=== PATIENT | female | born 1970 | race African-American/Black ===

== ENCOUNTER 2023-06-26 08:23 | Outpatient (OUT) | payer OTHER, SELFPAY ==
[2023-06-26 08:57] LABS: Basophils Percent Auto 0.7 % (0.2-2.0); Eosinophils Absolute Auto 0.2 10^3/uL (0.0-0.7); Eosinophils Percent Auto 4.4 % (0.9-7.0); Hematocrit 45.3 % (36.0-48.0); Hemoglobin 14.4 g/dL (12.0-16.0); Immature Granulocytes Abs Auto 0.01 10^3/uL (0.00-0.03); Immature Granulocytes Pct Auto 0.2 % (0.0-0.5); Lymphocytes Absolute Auto 2.4 10^3/uL (1.2-3.8); Lymphocytes Percent Auto 55.4 % (20.5-60.0); Mean Corpuscular HGB Conc 31.8 g/dL (29.9-35.2); Mean Corpuscular Hemoglobin 28.5 pg (26.7-34.0); Mean Corpuscular Volume 89.7 fL (81.0-99.0); Mean Platelet Volume 9.3 fL (9.5-13.5); Monocytes Absolute Auto 0.3 10^3/uL (0.3-0.8); Monocytes Percent Auto 7.2 % (1.7-12.0); Neutrophils Absolute Auto 1.4 10^3/uL (1.4-6.5); Neutrophils Percent Auto 32.1 % (43.0-75.0); Platelet Count 246 10^3/uL (150-450); Red Blood Count 5.05 10^6/uL (4.20-5.40); Red Cell Distribution Width 14.9 % (11.0-15.0); White Blood Count 4.3 10^3/uL (4.0-11.0)
[2023-06-26 09:08] LABS: Estimated Average Glucose 123 mg/dL; Glycohemoglobin A1C 5.9 % (4.5-6.2)
[2023-06-26 09:23] LABS: Alanine Aminotransferase 34 U/L (14-59); Albumin Globulin Ratio 0.8; Albumin Level 3.1 g/dL (3.4-5.0); Alkaline Phosphatase 96 U/L (46-116); Anion Gap 13.4; Aspartate Amino Transferase 21 U/L (15-37); BUN Creatinine Ratio 12.4; Bilirubin Total 0.2 mg/dL (0.2-1.0); Calcium 8.6 mg/dL (8.5-10.1); Chloride 108 mmol/L (98-107); Cholesterol 236 mg/dL (<=200); Estimated GFR (African America >60 (>=60); Estimated GFR (Non-African Ame >60 (>=60); Gamma Glutamyl Transpeptidase 31 U/L (8-55); Globulin 3.7 g/dL; Glucose 115 mg/dL (74-106); Potassium 4.4 mmol/L (3.5-5.1); Sodium 143 mmol/L (136-145); Thyroid Stimulating Hormone 0.736 uIU/mL (0.358-3.740); Total Protein 6.8 g/dL (6.4-8.2)
[2023-06-27 08:08] LABS: HBsAg Screen Negative (Negative); HCV Ab Non Reactive (Non Reactive); HIV Ab/p24 Ag Screen Non Reactive (Non Reactive); Hep A Ab, IgM Negative (Negative); Hep B Core Ab, IgM Negative (Negative); Rapid Plasma Reagin, Quant Non Reactive titer (NonRea<1:1)
== END 2023-06-26 08:24 | disposition home or self-care (01) ==
LOC: LAB 08:27
PROVIDERS: Nurse Practitioner Primary Care
DX: E78.5 Hyperlipidemia, unspecified (principal); R73.03 Prediabetes; F10.20 Alcohol dependence, uncomplicated; F13.20 Sedative, hypnotic or anxiolytic dependence, uncomplicated; F14.20 Cocaine dependence, uncomplicated
CPT/HCPCS: 36415; 80053; 80074; 82465; 82977; 83036; 84443; 85025; 86592; 87389

== ENCOUNTER 2023-06-30 12:40 | Emergency (ER) | payer OTHER, SELFPAY ==
[2023-06-30] VITALS (9 sets, daily range): BP systolic 142–150; BP diastolic 79–104; PULSE 54–64; RESP 18–47; TEMP 36.4; O2SAT 95–98; BMI 35.0
--- NOTE | 2023-06-30 12:47 | ECG_ITS ---
The [facility] Test Date: 2023-06-30 Pat Name: ELYSIA Ibrahim Department: Room: - Gender: Female [employer]: : 1970 Requested By: 1030 Order Number: [id number] Reading MD: [place] LUBIN Measurements Intervals [address] Flat Rate: 59 P: 58 [place]: 140 QRS: -19 QRSD: 96 T: 5 QT: 410 QTc: 408 Interpretive Statements 1100 Sinus rhythm 2420 RSR (QR) in lead V1/V2, consistent with right ventricular conduction delay ST/T wave changes, can't exclude inferolateral ischemia 0104 ELECTRODE(S) DETACHED ... Repeat ECG is requested 9150 abnormal ECG No previous ECG available for comparison Electronically Signed On 07-01-2023 7:13:25 EST by OH LUBIN
--- NOTE | 2023-06-30 12:48 | XR_ITS ---
The [address] [address] Patient Name: ELYSIA COX MRN: [id number] date: 1970 Sex: F Assigned Patient Location: ER Current Patient Location: ER Accession/Order Number: [id number] Exam Date: 06/30/2023 13:10 Report Date: 06/30/2023 13:58 At the request of: CHRISTINE CORTEZ Procedure: XR chest 1V EXAM: XR chest 1V at 1321 hours HISTORY: CP COMPARISON: None. TECHNIQUE: AP upright portable chest x-ray FINDINGS: The cardiac silhouette is borderline enlarged without overt cardiac decompensation. No acute infiltrate, effusion or pneumothorax is identified. The osseous structures are grossly intact. XR/XR chest 1V IMPRESSION: Borderline cardiac enlargement without overt cardiac decompensation. There is no evidence of a focal infiltrate. Direct comparison with a previous study may be helpful in determining the chronicity of these findings. Electronically authenticated by: [place] MAX Date: 06/30/2023 13:58
--- NOTE | 2023-06-30 12:48 | ED.CHESTPAI1 ---
HPI - Chest Pain General Chief Complaint: Chest Pain Stated Complaint: GENERAL WEAKNESS Time Seen by Provider: 06/30/23 12:47 History of Present Illness HPI narrative: 53-year-old female presents for chest pain. She's had some pressure on her chest for several days. About an hour ago she developed some sharp shooting pains in the sternal area which are now gone. 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 No fever cough or injury. Related Data Home Medications Medication Instructions Recorded Confirmed amlodipine 5 mg tablet 5 mg PO DAILY 06/30/23 06/30/23 levetiracetam 500 mg tablet 500 mg PO BID 06/30/23 06/30/23 (Keppra) losartan 50 mg tablet 50 mg PO DAILY 06/30/23 06/30/23 naltrexone 50 mg tablet 50 mg PO DAILY 06/30/23 06/30/23 omeprazole 20 mg capsule,delayed 20 mg PO DAILY 06/30/23 06/30/23 release oxybutynin chloride 5 mg 5 mg PO DAILY 06/30/23 06/30/23 tablet,extended release 24 hr sertraline 50 mg tablet 50 mg PO DAILY 06/30/23 06/30/23 thiamine HCl (vitamin B1) 100 mg 50 mg PO DAILY 06/30/23 06/30/23 tablet Allergies Allergy/AdvReac Type Severity Reaction Status Date / Time chlorpromazine AdvReac Intermediate Verified 06/30/23 12:47 [From Thorazine] divalproex sodium AdvReac Intermediate Verified 06/30/23 12:47 [From Depakote] morphine AdvReac Intermediate Verified 06/30/23 12:47 penicillin G AdvReac Intermediate Verified 06/30/23 12:47 Sulfa (Sulfonamide AdvReac Intermediate Verified 06/30/23 12:47 Antibiotics) Review of Systems ROS Narrative A ten point review of systems is negative except as noted above. PFSH PFSH Social History Smoking status: Former smoker Exam Narrative Exam Narrative: Nurses note and vital signs reviewed and patient is not hypoxic. General: The patient appears well and in no apparent distress. Patient is resting comfortably on cart. Skin: Warm, dry, no pallor noted. There is no rash noted. Head: Normocephalic, atraumatic Eye: Normal conjunctiva, no drainage Ears, Nose, Mouth, and Throat: oral mucosa is moist. Nares patent. Cardiovascular: Regular Rate and Rhythm Respiratory: Patient is in no distress, no accessory muscle use, lungs are clear to auscultation, no wheezing, rales or rhonchi Back: non-tender GI: soft and nontender Musculoskeletal: The patient has no evidence of calf tenderness, no pitting edema, symmetrical pulses noted bilaterally Neurological: A&O, normal speech Psychiatric: Cooperative Constitutional Vital Signs, click to edit/add: Last Vital Signs Temp 97.6 F 06/30/23 12:49 Pulse 54 L 06/30/23 13:30 Resp 22 06/30/23 13:30 BP 150/104 H 06/30/23 13:30 Pulse Ox 95 06/30/23 13:20 O2 Del Method Room Air 06/30/23 12:49 Course Vital Signs Vital signs: Vital Signs Pulse Oximetry 97 06/30/23 12:44 Temperature 97.6 F 06/30/23 12:49 Pulse Rate 54 L 06/30/23 13:30 Respiratory Rate 22 06/30/23 13:30 Blood Pressure 150/104 H 06/30/23 13:30 Pulse Oximetry 95 06/30/23 13:20 Oxygen Delivery Method Room Air 06/30/23 12:49 MDM - Chest Pain MDM Narrative Medical decision making narrative: her workup is negative including two troponins. She states that she feels much better now and no sharp pains are gone. She is going to be released. Treatment diagnosis and follow-up were discussed with the patient. Differential Diagnosis Differential diagnosis: Likely pneumothorax, unstable angina pectoris, atypical chest pain, st elevation myocardial infarction, costochondritis and chest pain Lab Data Attestation: I reviewed the patient's lab results. Labs: Lab Results 06/30/23 06/30/23 Range/Units 13:01 14:07 WBC 5.3 (4.0-11.0) 10^3/uL RBC 4.87 (4.20-5.40) 10^6/uL Hgb 13.9 (12.0-16.0) g/dL Hct 42.6 (36.0-48.0) % MCV 87.5 (81.0-99.0) fL MCH 28.5 (26.7-34.0) pg MCHC 32.6 (29.9-35.2) g/dL RDW 14.2 (11.0-15.0) % Plt Count 255 (150-450) 10^3/uL MPV 9.3 L (9.5-13.5) fL Neut % (Auto) 44.7 (43.0-75.0) % Lymph % (Auto) 42.0 (20.5-60.0) % [place] % (Auto) 8.5 (1.7-12.0) % Eos % (Auto) 4.0 (0.9-7.0) % Baso % (Auto) 0.6 (0.2-2.0) % Neut # (Auto) 2.4 (1.4-6.5) 10^3/uL Lymph # (Auto) 2.2 (1.2-3.8) 10^3/uL [place] # (Auto) 0.5 (0.3-0.8) 10^3/uL Eos # (Auto) 0.2 (0.0-0.7) 10^3/uL Baso # (Auto) 0.0 (0.0-0.1) 10^3/uL Abs Immat Gran (auto) 0.01 (0.00-0.03) 10^3/uL Imm/Tot Granulo (auto) 0.2 (0.0-0.5) % Sodium 140 (136-145) mmol/L Potassium 4.2 (3.5-5.1) mmol/L Chloride 106 (98-107) mmol/L Carbon Dioxide 25.8 (21.0-32.0) mmol/L Anion Gap 12.4 BUN 11.0 (7.0-18.0) mg/dL Creatinine 0.79 (0.55-1.02) mg/dL Est GFR ( Amer) >60 (>=60) Est GFR (Non-Af Amer) >60 (>=60) BUN/Creatinine Ratio 13.9 Glucose 110 H (74-106) mg/dL Calcium 9.0 (8.5-10.1) mg/dL Troponin I High Sens 5.0 4.7 (4.0-51.3) pg/mL Imaging Data Chest x-ray: Radiologist's impression: Procedure: XR chest 1V EXAM: XR chest 1V at 1321 hours HISTORY: CP COMPARISON: None. TECHNIQUE: AP upright portable chest x-ray FINDINGS: The cardiac silhouette is borderline enlarged without overt cardiac decompensation. No acute infiltrate, effusion or pneumothorax is identified. The osseous structures are grossly intact. IMPRESSION: Borderline cardiac enlargement without overt cardiac decompensation. There is no evidence of a focal infiltrate. Direct comparison with a previous study may be helpful in determining the chronicity of these findings. Electronically authenticated by: [place] MAX Date: 06/30/2023 13:58 ECG Data Attestation: I personally reviewed and interpreted this ECG as follows: (EKG on my interpretation shows normal sinus rhythm with a rate of 59 and no acute findings.) Heart Score History: Slightly/Non-Suspicious ECG: Normal Age: >45-<65 years Risk Factors: 1 or 2 Risk Factors Troponin: <Normal Limit Total Heart Score Recommendations & Risks:: 2 Discharge Plan Discharge Chief Complaint: Chest Pain Clinical Impression: Chest pain Patient Disposition: Home, Self-Care Time of Disposition Decision: 14:58 Condition: Good Mode of Transportation: Private Vehicle Prescriptions / Home Meds: No Action oxybutynin chloride 5 mg tablet extended release 24hr 5 mg PO DAILY thiamine HCl (vitamin B1) 100 mg tablet 50 mg PO DAILY levetiracetam [Keppra] 500 mg tablet 500 mg PO BID omeprazole 20 mg capsule,delayed release(DR/EC) 20 mg PO DAILY losartan 50 mg tablet 50 mg PO DAILY sertraline 50 mg tablet 50 mg PO DAILY naltrexone 50 mg tablet 50 mg PO DAILY amlodipine 5 mg tablet 5 mg PO DAILY Instructions: Chest Pain (ED) Stand Alone Forms: Portal Instructions Referrals: CARMENZA CASTANEDA [Primary Care Provider] - 1 week
[2023-06-30 13:08] LABS: Basophils Percent Auto 0.6 % (0.2-2.0); Eosinophils Absolute Auto 0.2 10^3/uL (0.0-0.7); Hematocrit 42.6 % (36.0-48.0); Hemoglobin 13.9 g/dL (12.0-16.0); Immature Granulocytes Abs Auto 0.01 10^3/uL (0.00-0.03); Immature Granulocytes Pct Auto 0.2 % (0.0-0.5); Lymphocytes Absolute Auto 2.2 10^3/uL (1.2-3.8); Mean Corpuscular HGB Conc 32.6 g/dL (29.9-35.2); Mean Corpuscular Hemoglobin 28.5 pg (26.7-34.0); Mean Corpuscular Volume 87.5 fL (81.0-99.0); Mean Platelet Volume 9.3 fL (9.5-13.5); Monocytes Absolute Auto 0.5 10^3/uL (0.3-0.8); Monocytes Percent Auto 8.5 % (1.7-12.0); Neutrophils Absolute Auto 2.4 10^3/uL (1.4-6.5); Neutrophils Percent Auto 44.7 % (43.0-75.0); Platelet Count 255 10^3/uL (150-450); Red Blood Count 4.87 10^6/uL (4.20-5.40); Red Cell Distribution Width 14.2 % (11.0-15.0); White Blood Count 5.3 10^3/uL (4.0-11.0)
[2023-06-30 13:28] LABS: Anion Gap 12.4; BUN Creatinine Ratio 13.9; Carbon Dioxide 25.8 mmol/L (21.0-32.0); Chloride 106 mmol/L (98-107); Estimated GFR (African America >60 (>=60); Estimated GFR (Non-African Ame >60 (>=60); Glucose 110 mg/dL (74-106); Potassium 4.2 mmol/L (3.5-5.1); Sodium 140 mmol/L (136-145)
[2023-06-30 14:39] LABS: Troponin I High Sensitivity 4.7 pg/mL (4.0-51.3)
== END 2023-06-30 15:16 | disposition home or self-care (01) ==
PROVIDERS: Emergency Provider Emergency Medicine; PCP Family Medicine
DX: R07.9 Chest pain, unspecified (principal); Z79.899 Other long term (current) drug therapy; Z87.891 Personal history of nicotine dependence
CPT/HCPCS: 36415; 71045; 80048; 84484; 85025; 93005; 99285

== ENCOUNTER 2023-07-23 09:30 | Outpatient (OUT) | payer OTHER, SELFPAY ==
--- NOTE | 2023-07-23 09:35 | XR_ITS ---
The [address] [address] Patient Name: ELYSIA COX MRN: [id number] date: 1970 Sex: F Assigned Patient Location: [facility] Current Patient Location: Accession/Order Number: [id number] Exam Date: 07/23/2023 09:45 Report Date: 07/24/2023 07:22 At the request of: NON-STAFF PHYSICIAN Procedure: XR shoulder RT min 2V PROCEDURE: XR shoulder RT min 2V HISTORY: Rt shoulder pain, limited ROM COMPARISON: None. FINDINGS: BONES:Irregularity of the inferior posterior rim of the glenoid suspicious for remote fracture or degenerative osteophyte. Unremarkable humeral head and acromioclavicular joint. SOFT TISSUES:No visible soft tissue swelling. EFFUSION:None visible. OTHER: Negative. XR/XR shoulder RT min 2V IMPRESSION: 1. Degenerative changes versus remote injury versus summation artifact involving the right glenoid. Consider MRI or CT imaging of the right shoulder for further evaluation. Electronically authenticated by: RADHA LINARES Date: 07/24/2023 07:22
--- OUTSIDE RECORDS SUMMARY | 2023-07-23 10:38 | XMS_ITS | CCD ---
Author Name Unknown Address [facility] [employer] [id number] [place] [address] Organization [facility] Care Team Providers Care Aws Solution Architect Name Role Phone Health DeptGordon Primary Care Provider NICANOR Kiser Emergency Provider MD Antwan Tran Emergency Provider [phone] [facility] Unavailable Honey Kiser Admitting Unavailable Honey Kiser Attending Unavailable Antwan Tran Admitting Unavailable Antwan Tran Attending [facility]available [facility] Unavailable Allergies Allergy Classification Reported Allergen(s) Allergy Type Date of Onset Reaction(s) Facility (3 sources) chlorproMAZINE; Translations: [chlorpromazine] Drug Allergy 2 Swelling of Lip/Tongue/Thro at [facility] (3 sources) Morphine; Translations: [morphine] Drug Allergy 2 Swelling of Lip/Tongue/Thro at [facility] (3 sources) oxyCODONE; Translations: [oxycodone] Drug Allergy 2 Itching [facility] (3 sources) Penicillins; Translations: [Penicillins] Allergy to substance 2 Unknown Reaction [facility] (3 sources) Sulfonamides (Antibiotic); Translations: [Sulfa (Sulfonamide Antibiotics)] Allergy to substance 2 Itching [facility] Medications Current Medications Medication Drug Class(es) Dates Sig (Normalized) Sig (Original) amLODIPine 5 mg oral tablet (3 sources) Dihydropyridine Calcium Channel Viktor Start: 03-18-2023 take 5 mg by mouth once daily Amlodipine Active 5 MG PO Daily March 18, 2023 12:00am Start: 03-22-2019 End: 01-03-2023 take 5 mg by mouth once daily Amlodipine Discontinued 5 MG PO Daily March 22, 2019 12:00am January 03, 2023 5:58pm atorvastatin 40 mg oral tablet (3 sources) HMG-CoA Reductase Inhibitor Start: 03-18-2023 take 40 mg by mouth once daily Atorvastatin Active 40 MG PO Daily March 18, 2023 12:00am Start: 03-22-2019 End: 01-03-2023 take 40 mg by mouth once daily Atorvastatin Discontinu ed 40 MG PO Daily March 22, 2019 12:00am January 03, 2023 5:58pm diphenhydrAMINE hydrochloride 25 mg oral tablet (3 sources) Histamine-1 Receptor Antagonist Start: 03-18-2023 take 25 mg by mouth once daily Diphenhydramine Hcl Active 25 MG PO Daily March 18, 2023 12:00am Start: 01-29-2020 End: 05-07-2021 Diphenhydramine Hcl (Benadry l) 25 mg Capsule Discontinued 50 MG PO every 6 to 8 hours January 29, 2020 12:00am May 07, 2021 8:36am hydroCHLOROthiazide 25 mg oral tablet (3 sources) Thiazide Diuretic Start: 03-18-2023 take 25 mg by mouth once daily Hydrochlorothiazide Active 25 MG PO Daily March 18, 2023 12:00am Start: 10-14-2019 End: 01-03-2023 take 25 mg by mouth once daily Hydrochlorothiazide Discontinued 25 MG PO Daily October 14, 2019 12:00am January 03, 2023 5:59pm melatonin 5 mg oral tablet (3 sources) Start: 03-18-2023 take 5 mg by mouth once daily at bedtime Melatonin Active 5 MG PO Daily at bedtime March 18, 2023 12:00am Start: 05-14-2021 End: 01-03-2023 take 5 mg by mouth at bedtime Melatonin Discontinued 5 MG PO Bedtime May 14, 2021 12:00am January 03, 2023 5:59pm metFORMIN hydrochloride 500 mg oral tablet (3 sources) Biguanide Start: 03-18-2023 take 500 mg by mouth once daily Metformin Active 500 MG PO Daily March 18, 2023 12:00am Start: 01-16-2020 End: 01-03-2023 take 500 mg by mouth once daily Metformin Discontinued 500 MG PO Daily January 16, 2020 12:00am January 03, 2023 5:59pm naproxen 500 mg oral tablet (5 sources) Nonsteroidal Anti-inflammatory Drug Start: 01-03-2023 End: 03-18-2023 take 500 mg by mouth twice daily Naproxen Active 500 MG PO Twice daily March 18, 2023 12:00am Start: 05-14-2021 End: 08-29-2021 take 1 tablet by mouth twice daily Naproxen (Naprosyn) 500 mg tablet Discontinued 500 MG PO Twice daily May 14, 2021 12:00am August 29, 2021 8:38am omeprazole 20 mg delayed release oral capsule (3 sources) Proton Pump Inhibitor Start: 03-18-2023 take 20 mg by mouth once daily Omeprazole Active 20 MG PO Daily March 18, 2023 12:00am Start: 03-22-2019 End: 01-03-2023 take 20 mg by mouth once daily Omeprazole Discontinued 20 MG PO Daily March 22, 2019 12:00am January 03, 2023 5:59pm Completed/Discontinued Medications Medication Drug Class(es) Dates Sig (Normalized) Sig (Original) acetaminophen 325 mg / HYDROcodone bitartrate 5 mg oral tablet (2 sources) Opioid Agonist Start: 02-18-2020 End: 05-20-2020 take 1 tablet by mouth every six hours Hydrocodone-Acetam inophen ([place]) 5-325 mg tablet Discontinued 1 TAB PO Q6H 05 05February 18, 2020 May 20, 2020 6:04pm albuterol 0.417 mg/ml inhalation solution (6 sources) beta2-Adrenergic Agonist Start: 06-07-2020 End: 08-29-2021 take 1.25 mg by inhalation every four to six hours Albuterol Sulfate Discontinued 1.25 MG INHALATION EVERY 4-6 HOURS June 07, 2020 1:00am August 29, 2021 8:36am Start: 05-20-2020 End: 01-03-2023 take 2.5 mg by inhalation every six hours Albuterol Sulfate Discontinued 2.5 MG INHALATION Q6H June 07, 2020 1:00am May 07, 2021 8:35am ARIPiprazole 400 mg extended release prefilled syringe (4 sources) Atypical Antipsychotic Start: 05-20-2020 End: 01-03-2023 inject 400 mg by intramuscular injection every month Aripiprazole (Duke Changa) 400 mg suspension,extended rel syring Discontinued 400 MG IM every month May 20, 2020 12:00am January 03, 2023 5:58pm Start: 03-22-2019 End: 05-20-2020 take 10 mg by mouth once daily Aripiprazole Discontinu ed 10 MG PO Daily March 22, 2019 12:00am May 20, 2020 6:38pm aspirin 81 mg delayed release oral tablet (2 sources) Platelet Aggregation Inhibitor, Nonsteroidal Anti-inflammatory Drug Start: 03-22-2019 End: 01-03-2023 take 81 mg by mouth once daily Aspirin Discontinued 81 MG PO Daily March 22, 2019 12:00am January 03, 2023 5:58pm azithromycin 250 mg oral tablet (2 sources) Macrolide Antimicrobial Start: 06-07-2020 End: 06-20-2020 Azithromycin Discontinued 250 MG PO Daily June 07, 2020 1:00am June 20, 2020 7:19pm Take two tabs (500mg) on day 1 then take one tab daily for 4 days benzonatate 100 mg oral capsule (4 sources) Non-narcotic Antitussive Start: 06-20-2020 End: 05-07-2021 take 1 capsule by mouth twice daily Benzonatate (Tessalon Perles) 100 mg capsule Discontinued 100 MG PO Twice daily June 20, 2020 1:00am May 07, 2021 8:36am Start: 06-20-2019 End: 10-14-2019 take 2 capsules by mouth three times daily Benzonatate (Tessalon Perles) 100 mg capsule Discontinued 200 MG PO Three times daily June 20, 2019 1:00am October 14, 2019 8:45pm cholecalciferol 0.05 mg oral capsule (2 sources) Vitamin D Start: 08-29-2021 End: 01-03-2023 take 2000 [IU] by mouth once daily Cholecalciferol (Vitamin D3) Discontinued 2000 UNIT PO Daily August 29, 2021 1:00am January 03, 2023 5:58pm cyclobenzaprine hydrochloride 10 mg oral tablet (2 sources) Muscle Relaxant Start: 11-18-2021 End: 01-03-2023 take 10 mg by mouth three times daily Cyclobenzaprine Discontinued 10 MG PO Three times daily November 18, 2021 12:00am January 03, 2023 5:58pm dicyclomine hydrochloride 20 mg oral tablet (2 sources) Anticholinergic Start: 05-07-2021 End: 08-29-2021 take 20 mg by mouth three times daily Dicyclomine Discontinued 20 MG PO Three times daily May 07, 2021 12:00am August 29, 2021 8:37am doxycycline hyclate 100 mg oral capsule (6 sources) Tetracycline-class Drug Start: 06-20-2020 End: 05-07-2021 take 100 mg by mouth twice daily Doxycycline Hyclate Discontinued 100 MG PO Twice daily 22 05June 20, 2020 1:00am May 07, 2021 8:36am Start: 06-20-2019 End: 01-16-2020 take 100 mg by mouth twice daily Doxycycline Hyclate Discontinued 100 MG PO Twice daily 14 October 14, 2019 12:00am January 16, 2020 2:59pm FLUoxetine 20 mg oral capsule (2 sources) Serotonin Reuptake Inhibitor Start: 10-14-2019 End: 01-03-2023 take 30 mg by mouth once daily in the morning Fluoxetine Discontinued 30 MG PO Every morning October 14, 2019 12:00am January 03, 2023 5:58pm fluticasone propionate 0.05 mg/actuat metered dose nasal spray (2 sources) Corticosteroid Start: 06-20-2020 End: 01-03-2023 Fluticasone Propionate (Flonase Allergy Relief) 50 mcg/actuation spray,suspension Discontinued 50 MCG INTRANASAL Daily June 20, 2020 1:00am January 03, 2023 5:58pm Fluticasone Propion-Salmeterol (4 sources) Corticosteroid, beta2-Adrenergic Agonist Start: 06-20-2020 End: 03-18-2023 Fluticasone Propion-Salmeterol (Advair Diskus) 100-50 mcg/dose blister with device Discontinued 1 INH INHALATION Daily June 20, 2020 1:00am March 18, 2023 10:18am Start: 06-20-2020 Fluticasone Pr opion-Salmeterol (Advair Diskus) 100-50 mcg/dose blister with device Active 1 INH INHALATION Daily June 20, 2020 1:00am Start: 03-22-2019 End: 10-14-2019 take 1 spray(s) by inhalation once daily Fluticasone Propion-Salmeterol Discontinued 2 SPRAY INHALATION Daily March 22, 2019 12:00am October 14, 2019 8:45pm guaiFENesin 1200 mg oral tablet (2 sources) Start: 02-08-2021 End: 05-07-2021 take 1200 mg by mouth twice daily Guaifenesin Discontinued 1200 MG PO Twice daily February 08, 2021 12:00am May 07, 2021 8:40am ibuprofen 800 mg oral tablet (4 sources) Nonsteroidal Anti-inflammatory Drug Start: 11-18-2021 End: 01-03-2023 take 800 mg by mouth three times daily Ibuprofen Discontinued 800 MG PO Three times daily November 18, 2021 12:00am January 03, 2023 5:59pm Start: 05-14-2021 End: 08-29-2021 take 600 mg by mouth three times daily Ibuprofen Discontinued 600 MG PO Three times daily May 14, 2021 12:00am August 29, 2021 8:37am indomethacin 25 mg oral capsule (2 sources) Nonsteroidal Anti-inflammatory Drug Start: 02-18-2020 End: 05-20-2020 take 25 mg by mouth three times daily at mealtime Indomethacin Discontinued 25 MG PO Three times daily February 18, 2020 4:54am May 20, 2020 6:39pm administer with food or milk levoFLOXacin 750 mg oral tablet (2 sources) Quinolone Antimicrobial Start: 05-07-2021 End: 08-29-2021 take 750 mg by mouth once daily Levofloxacin Discontinued 750 MG PO Daily 02 06May 07, 2021 12:00am August 29, 2021 8:37am loratadine 10 mg oral tablet (2 sources) Start: 01-25-2021 End: 01-03-2023 take 1 tablet by mouth once daily Loratadine (Claritin) 10 mg tablet Discontinued 10 MG PO Daily January 25, 2021 12:00am January 03, 2023 5:59pm meloxicam 15 mg oral tablet (2 sources) Nonsteroidal Anti-inflammatory Drug Start: 10-14-2019 End: 05-14-2021 take 15 mg by mouth once daily Meloxicam Discontinued 15 MG PO Daily October 14, 2019 12:00am May 14, 2021 3:57pm montelukast 10 mg oral tablet (2 sources) Leukotriene Receptor Antagonist Start: 03-22-2019 End: 01-03-2023 take 10 mg by mouth once daily Montelukast Discontinued 10 MG PO Daily March 22, 2019 12:00am January 03, 2023 5:59pm nortriptyline 10 mg oral capsule (2 sources) Tricyclic Antidepressant Start: 10-14-2019 End: 05-14-2021 take 10 mg by mouth once daily at bedtime Nortriptyline Discontinued 10 MG PO Daily at bedtime October 14, 2019 12:00am May 14, 2021 3:53pm ofloxacin 3 mg/ml otic solution (2 sources) Quinolone Antimicrobial Start: 01-16-2020 End: 05-20-2020 Ofloxacin Discontinued 10 DROPS EAR-RIGHT Twice daily 05 09January 16, 2020 12:00am May 20, 2020 6:04pm ondansetron 4 mg disintegrating oral tablet (4 sources) Serotonin-3 Receptor Antagonist Start: 05-14-2021 End: 08-29-2021 take 4 mg by mouth four times daily Ondansetron Discontinued 4 MG PO Four times daily May 14, 2021 12:00am August 29, 2021 8:38am Start: 03-22-2019 End: 06-20-2019 Ondansetron Discontinued Mar 12:00am June 20, 2019 4:39pm 24 hr oxybutynin chloride 5 mg extended release oral tablet (2 sources) Cholinergic Muscarinic Antagonist Start: 05-14-2021 End: 01-03-2023 take 5 mg by mouth once daily Oxybutynin Chloride Discontinued 5 MG PO Daily May 14, 2021 12:00am January 03, 2023 5:59pm polyethylene glycol 3350 15836 mg powder for oral solution (2 sources) Osmotic Laxative Start: 01-29-2021 End: 01-03-2023 Polyethylene Glycol 3350 (Miralax) 17 gram Powder In Packet Discontinued 17 GM PO Daily January 29, 2021 12:00am January 03, 2023 5:59pm mix into 4-8 oz. of any hot/cold/room temp. beverage; use immediately predniSONE 50 mg oral tablet (12 sources) Start: 06-20-2020 End: 05-07-2021 take 50 mg by mouth once daily Prednisone Discontinued 50 MG PO Daily 7 June 20, 2020 1:00am May 07, 2021 8:40am Start: 06-07-2020 End: 06-20-2020 take 20 mg by mouth once daily at mealtime Prednisone Discontinued 20 MG PO Daily 5 June 07, 2020 1:00am June 20, 2020 7:19pm administer with food or milk Start: 02-21-2020 End: 05-20-2020 take 50 mg by mouth once daily Prednisone Discontinued 50 MG PO Daily 7 February 21, 2020 12:00am May 20, 2020 6:01pm Start: 01-29-2020 End: 05-20-2020 take 6 tablets by mouth once daily Prednisone Discontinued 0 MG PO Daily 39 January 29, 2020 12:00am May 20, 2020 6:01pm 6 tabs for 3 days 4 tabs for 3 days 2 tabs for 3 days 1 tabs for 3 days Start: 10-14-2019 End: 01-16-2020 take 50 mg by mouth once daily Prednisone Discontinued 50 MG PO Daily 5 October 14, 2019 12:00am January 16, 2020 3:01pm Start: 06-20-2019 End: 10-14-2019 take 60 mg by mouth once daily at mealtime Prednisone Discontinued 60 MG PO Daily 9 3 June 20, 2019 1:00am October 14, 2019 8:45pm administer with food or milk tamsulosin hydrochloride 0.4 mg oral capsule (2 sources) alpha-Adrenergic Viktor Start: 03-22-2019 End: 10-14-2019 take 0.4 mg by mouth once daily Tamsulosin Discontinued 0.4 MG PO Daily March 22, 2019 12:00am October 14, 2019 8:45pm 60 actuat tiotropium 0.51462 mg/actuat inhalation spray (4 sources) Anticholinergic Start: 05-14-2021 End: 01-03-2023 take 1.25 ug by inhalation once daily Tiotropium [place] (Spiriva Respimat) 1.25 mcg/actuation mist Discontinued 2 INH INHALATION Daily May 14, 2021 12:00am January 03, 2023 5:59pm Start: 03-22-2019 End: 05-20-2020 take 1 spray(s) by inhalation once daily Tiotropium [place] (Spiriva Respimat) 1.25 mcg/actuation mist Discontinued 1 SPRAY INHALATION Daily March 22, 2019 12:00am May 20, 2020 6:40pm topiramate 50 mg oral tablet (2 sources) Start: 05-20-2020 End: 05-07-2021 take 1 tablet by mouth twice daily Topiramate (Topamax) 50 mg tablet Discontinued 50 MG PO Twice daily May 20, 2020 12:00am May 07, 2021 8:40am Problems Problem Classification Problem Date Documented Da te Episodic/Chronic Abdominal pain (8 sources) Flank pain; Translations: [Unspecified abdominal pain] 05-07-2021 Episodic Allergic reactions (2 sources) Allergic reaction; Translations: [Allergy, unspecified, initial encounter] 01-29-2020 Episodic Chronic obstructive pulmonary disease and bronchiectasis (2 sources) Acute exacerbation of chronic obstructive airways disease 06-20-2020 Chronic Chronic obstructive pulmonary disease and bronchiectasis (4 sources) Bronchitis; Translations: [Bronchitis, not specified as acute or chronic] 06-20-2019 Episodic Diabetes mellitus without complication (2 sources) Diabetes mellitus; Translations: [Type 2 diabetes mellitus without complications] 01-16-2020 Chronic Genitourinary symptoms and ill-defined conditions (2 sources) Dysuria; Translations: [Dysuria] 05-07-2021 Episodic Gout and other crystal arthropathies (4 sources) Podagra; Translations: [Gout, unspecified] 02-18-2020 Chronic Headache; including migraine (1 source) Headache; Translations: [Headache] 03-18-2023 Episodic Headache; including migraine (1 source) Headache; including migraine; Translations: [Headache, unspecified] Onset: 03-18-2023 Nausea and vomiting (2 sources) Nausea; Translations: [Nausea] 08-27-2019 Episodic Nonspecific chest pain (4 sources) Atypical chest pain; Translations: [Other chest pain] 03-22-2019 Episodic Other connective tissue disease (2 sources) Tendinitis of left rotator cuff; Translations: [Other shoulder lesions, left shoulder] 11-18-2021 Episodic Other connective tissue disease (2 sources) Spasm; Translations: [Other muscle spasm] 01-03-2023 Episodic Other connective tissue disease (2 sources) Foot pain; Translations: [Pain in left foot] 02-18-2020 Episodic Other ear and sense organ disorders (2 sources) Otitis externa; Translations: [Unspecified otitis externa, unspecified ear] 01-16-2020 Chronic Other gastrointestinal disorders (2 sources) Constipation; Translations: [Constipation, unspecified] 01-29-2021 Episodic Other upper respiratory disease (2 sources) Seasonal allergic rhinitis; Translations: [Other seasonal allergic rhinitis] 01-25-2021 Chronic Other upper respiratory infections (2 sources) Viral upper respiratory tract infection; Translations: [Acute upper respiratory infection, unspecified] 02-08-2021 Episodic Residual codes; unclassified (2 sources) Noncompliance with treatment; Translations: [Noncompliance of patient with other medical treatment and regimen] 06-07-2020 Episodic Residual codes; unclassified (2 sources) Edema; Translations: [Edema, unspecified] 03-22-2019 Episodic Residual codes; unclassified (2 sources) Emotional state finding; Translations: [Nervousness] 08-27-2019 Episodic Superficial injury; contusion (2 sources) Corneal abrasion; Translations: [Injury of conjunctiva and corneal abrasion without foreign body, unspecified eye, initial encounter] 02-08-2020 Episodic Unclassified (1 source) Pain in left lower leg; Translations: [Pain in left lower leg] Onset: 01-03-2023 Viral infection (2 sources) Disease caused by 2019-nCoV; Translations: [COVID-19] 09-09-2021 Episodic Results Test Name Value Interpretation Reference Range Facility US venous duplex LE [facility] US venous duplex [facility] [address] Ultrasound Report Signed Patient: Shilpa Jones MR#: [id number] : 1970 Acct:[id number] Age/Sex: 52 / F ADM Date: 01/03/23 Loc: ER Room: Type: [facility] ER Attending Dr: Ordering Provider: Honey Kiser APRN Date of Service: 01/03/23 US/US venous duplex LE LT: left pain Copies to: Honey Kiser APRN LEFT LOWER EXTREMITY VENOUS DUPLEX INDICATION: Left leg pain Unilateral left lower extremity venous duplex Doppler study was obtained utilizing B-mode, color- flow and spectral Doppler. FINDINGS: The left common femoral, femoral, and popliteal veins showed adequate compressibility, color-flow and augmentation. The left posterior tibial and peroneal veins were compressible, as well as proximal greater saphenous vein. The contralateral right common femoral vein was compressible with color-flow and augmentation. US/US venous duplex LE LT IMPRESSION: NO EVIDENCE OF DEEP VENOUS THROMBOSIS IN THE LEFT LOWER EXTREMITY. NO SUPERFICIAL THROMBOPHLEBITIS WAS NOTED. Impression dictated by: Sean Au M.D.01/05/2023 4:05 PM Dictation Location: [place] [address] Tech: Sena Herrera Transcribed By: KARO 01/05/23 160 Dictated By: Sean Au MD 01/05/23 160 Signed By: 01/05/23 1605 Normal [facility] Activated partial thrombopla stin time (aPTT) in platelet poor plasma by coagulation aOrdered By: Honey Kiser on 01-03-2023 aPTT Coag (PPP) [Time] 34.7 s 25.1-36.5 [facility] Automated basophil %Ordered By: Honey Kiser on 01-03-2023 Basophils/100 WBC (Bld) 0.9 % Normal . [facility] Comment on above: Performed By: #### C BC, BMP, PTT, PT #### [facility] [address] [place] [address] Automated basophil countOrde red By: Honey Kiser on 01-03-2023 Basophils (Bld) [#/Vol] 0.0 10*3/uL Normal 0.0-0.2 [facility] Comment on above: Result Comment: PERF ORMED BY: [place] [address] PATHOLOGIST ELECTRICIAN APPRENTICE VODNA ARCHIBALD M.D. Performed By: #### C BC, BMP, PTT, PT #### [facility] [address] [place] [address] Automated blood monocyte cou ntOrdered By: Honey Kiser on 01-03-2023 Monocytes (Bld) [#/Vol] 0.5 10*3/uL Normal 0.0-0.8 [facility] Comment on above: Performed By: #### C BC, BMP, PTT, PT #### [address] Automated eosinophil %Ordere d By: Honey Kiser on 01-03-2023 Eosinophils/100 WBC (Bld) 1.8 % Normal . [facility] Comment on above: Performed By: #### C BC, BMP, PTT, PT #### [address] Automated eosinophil countOr dered By: Honey Kiser on 01-03-2023 Eosinophils (Bld) [#/Vol] 0.1 10*3/uL Normal 0.0-0.45 [facility] Comment on above: Performed By: #### C BC, BMP, PTT, PT #### [address] Automated monocyte %Ordered By: Honey Kiser on 01-03-2023 Monocytes/100 WBC (Bld) 10.2 % Normal . [facility] Comment on above: Performed By: #### C BC, BMP, PTT, PT #### [address] Automated neutrophil %Ordere d By: Honey Kiser on 01-03-2023 Neutrophils/100 WBC (Bld) 46.4 % Normal . [facility] Comment on above: Performed By: #### C BC, BMP, PTT, PT #### [address] Basic Metabolic Panelon 06-0 Creatinine Clr Calc Pharmacy 93.11 Normal [facility] Comment on above: Result Comment: PERF ORMED BY: [place] [address] PATHOLOGIST ELECTRICIAN APPRENTICE VONDA ARCHIBALD M.D. Performed By: #### C BC, BMP, PTT, PT #### [address] GFR/1.73 sq M.predicted MDRD (S/P/Bld) [Vol rate/Area] mL/min/{1.73_m2} Normal [facility] Comment on above: Performed By: #### C BC, BMP, PTT, PT #### [facility] [address] Calcium [Mass/volume] in Ser um or PlasmaOrdered By: Honey Kiser on 01-03-2023 Calcium [Mass/Vol] 9.0 mg/dL Normal 8.6-10.3 [facility] Comment on above: Performed By: #### C BC, BMP, PTT, PT #### [address] Carbon dioxide, total [Moles /volume] in Serum or PlasmaOrdered By: Honey Kiser on 01-03-2023 CO2 [Moles/Vol] 24.0 mmol/L Normal 21.0-31.0 [facility] Comment on above: Performed By: #### C BC, BMP, PTT, PT #### [address] Chloride [Moles/volume] in S harry or PlasmaOrdered By: Honey Kiser on 01-03-2023 Chloride [Moles/Vol] 109 mmol/L High 98-107 [facility] Comment on above: Performed By: #### C BC, BMP, PTT, PT #### [address] Complete Blood Count Auto Di ffon 01-03-2023 Mean Corpuscular HGB Conc 32.8 g/dL Normal 32.0-35.0 [facility] Comment on above: Performed By: #### C BC, BMP, PTT, PT #### [place] [address] [place] Monocytes/100 WBC (Bld) 16.81 % Normal 0.00-20.00 [facility] Comment on above: Performed By: #### C BC, BMP, PTT, PT #### [place] [address] [place] NRBC% 0.2 /100{WBC} Normal 0-0.5 [facility] Comment on above: Performed By: #### C BC, BMP, PTT, PT #### [facility] [address] Creatinine [Mass/volume] in Serum or PlasmaOrdered By: Honey Kiser on 01-03-2023 Creatinine [Mass/Vol] 0.84 mg/dL Normal 0.60-1.20 [facility] Comment on above: Performed By: #### C BC, BMP, PTT, PT #### [facility] [address] Erythrocyte distribution wid th [Ratio] by Automated countOrdered By: Honey Kiser on 01-03-2023 Erythrocyte distribution width (RBC) [Ratio] 15.5 % High 11.9-15.3 [facility] Comment on above: Performed By: #### C BC, BMP, PTT, PT #### [facility] [address] Erythrocytes [#/volume] in B lood by Automated countOrdered By: Honey Kiser on 01-03-2023 RBC (Bld) [#/Vol] 5.04 10*6/uL High 3.60-5.00 [facility] Comment on above: Performed By: #### C BC, BMP, PTT, PT #### [facility] [address] Glucose [Mass/volume] in Ser um or PlasmaOrdered By: Honey Kiser on 01-03-2023 Glucose [Mass/Vol] 83 mg/dL Normal 70-100 [facility] Comment on above: ADA recommended refe rence rangeRandom Glucose Reference Range is dependent on time and content of last meal. Glucose of more than 200 mg/dL in a nonstressed, ambulatory subject supports the diagnosis of Diabetes Mellitus. Result Comment: Reeds om Glucose Reference Range is dependent on time and content of last meal. Glucose of more than 200 mg/dL in a nonstressed, ambulatory subject supports the diagnosis of Diabetes Mellitus. ADA recommended reference range Performed By: #### C BC, BMP, PTT, PT #### [facility] [address] [place] [address] Hematocrit [Volume Fraction] of Blood by Automated countOrdered By: Honey Kiser on 01-03-2023 Hematocrit (Bld) [Volume fraction] 42.0 % Normal 34.0-46.4 [facility] Comment on above: Performed By: #### C BC, BMP, PTT, PT #### [address] Hemoglobin [Mass/volume] in BloodOrdered By: Honey Kiser on 01-03-2023 Hemoglobin (Bld) [Mass/Vol] 13.8 g/dL Normal 11.8-15.4 [facility] Comment on above: Performed By: #### C BC, BMP, PTT, PT #### [address] Leukocytes [#/volume] correc ihsan for nucleated erythrocytes in Blood by Automated counOrdered By: Honey Kiser on 01-03-2023 WBC corrected for nucl RBC Auto (Bld) [#/Vol] 5.2 10*3/uL 3.8-11.6 [facility] Leukocytes [#/volume] in Blo od by Automated countOrdered By: Honey Kiser on 01-03-2023 WBC (Bld) [#/Vol] 5.2 10*3/uL Normal 3.8-11.6 [facility] Comment on above: Performed By: #### C BC, BMP, PTT, PT #### [place] [address] [place] Lymphocytes [#/volume] in Bl ood by Automated countOrdered By: Honey Kiser on 01-03-2023 Lymphocytes (Bld) [#/Vol] 2.1 10*3/uL Normal 1.00-4.8 [facility] Comment on above: Performed By: #### C BC, BMP, PTT, PT #### [place] [address] [place] Lymphocytes/100 leukocytes i n Blood by Automated countOrdered By: Honey Kiser on 01-03-2023 Lymphocytes/100 WBC (Bld) 40.7 % Normal . [facility] Comment on above: Performed By: #### C BC, BMP, PTT, PT #### [facility] [address] [place] [address] MCH [Entitic mass] by Automa ihsan countOrdered By: Honey Kiser on 01-03-2023 MCH (RBC) [Entitic mass] 27.4 pg Normal 24.7-34.3 [facility] Comment on above: Performed By: #### C BC, BMP, PTT, PT #### [facility] [address] [place] [address] MCHC Auto (RBC) [Mass/Vol]Or dered By: Honey Kiser on 01-03-2023 MCHC (RBC) [Mass/Vol] 32.8 g/dL 32.0-35.0 [facility] MCV [Entitic volume] by Auto mated countOrdered By: Honey Kiser on 01-03-2023 MCV (RBC) [Entitic vol] 83.4 fL Normal 80-100 [facility] Comment on above: Performed By: #### C BC, BMP, PTT, PT #### [facility] [address] [place] [address] Monocyte distribution width [Entitic volume] in Blood by AutomatedOrdered By: Honey Kiser on 01-03-2023 Monocyte distribution width Auto (Bld) [Entitic vol] 16.81 % 0.00-20.00 [facility] Neutrophils [#/volume] in Bl ood by Automated countOrdered By: Honey Kiser on 01-03-2023 Neutrophils (Bld) [#/Vol] 2.4 10*3/uL Normal 1.8-7.7 [facility] Comment on above: Performed By: #### C BC, BMP, PTT, PT #### [facility] [address] [place] [address] No Panel InformationOrdered By: Honey Kiser on 01-03-2023 Estimated GFR (CKD-EPI) > 60.0 mL/Min [facility] Creatinine Clearance (Chem 93.11 [facility] Nucleated erythrocytes [Pres ence] in Blood by Automated countOrdered By: Honey Kiser on 01-03-2023 Nucleated RBC Auto Ql (Bld) 0.2 /100{WBC} 0-0.5 [facility] Partial Thromboplastin Timeo n 01-03-2023 aPTT Coag (Bld) [Time] 34.7 s Normal 25.1-36.5 [facility] Comment on above: Result Comment: PERF ORMED BY: [place] [address] PATHOLOGIST ELECTRICIAN APPRENTICE VONDA ARCHIBALD M.D. Performed By: #### C BC, BMP, PTT, PT #### [facility] [address] [place] [address] Platelet mean volume [Entiti c volume] in Blood by Automated countOrdered By: Honey Kiser on 01-03-2023 Platelet mean volume (Bld) [Entitic vol] 7.7 fL Normal 6.3-10.7 [facility] Comment on above: Performed By: #### C BC, BMP, PTT, PT #### [facility] [address] [place] [address] Platelet poor plasma interna tional normalized ratio (INR) by coagulation assay (relatOrdered By: Honey Kiser on 01-03-2023 INR Coag (PPP) [Relative time] 1.0 {INR} Normal [facility] Comment on above: INR Therapeutic Rang e A) Pre- and Peroperative OAT started two weeks before surgery. NOT HIP SURGERY: 1.5 - 2.5 HIP SURGERY: 2 - 3B) Primary and secondary prevention of venous THROMBOSIS: 2 - 3C) Active venous thrombosis, pulmonary embolismand prevention of recurrent venous thrombosis: 2 - 3D) Prevention of arterial thromboembolismincluding patients with mechanical heart valves: 3 - 4.5 Result Comment: INR Therapeutic Range A) Pre- and Peroperative OAT started two weeks before surgery. NOT HIP SURGERY: 1.5 - 2.5 HIP SURGERY: 2 - 3 B) Primary and secondary prevention of venous THROMBOSIS: 2 - 3 C) Active venous thrombosis, pulmonary embolism and prevention of recurrent venous thrombosis: 2 - 3 D) Prevention of arterial thromboembolism including patients with mechanical heart valves: 3 - 4.5 Performed By: #### C BC, BMP, PTT, PT #### [address] Platelets [#/volume] in Bloo d by Automated countOrdered By: Honey Kiser on 01-03-2023 Platelets (Bld) [#/Vol] 272 10*3/uL Normal 150-450 [facility] Comment on above: Performed By: #### C BC, BMP, PTT, PT #### [address] Potassium [Moles/volume] in Serum or PlasmaOrdered By: Honey Kiser on 01-03-2023 Potassium [Moles/Vol] 3.9 mmol/L Normal 3.5-5.1 [facility] Comment on above: Performed By: #### C BC, BMP, PTT, PT #### [address] Prothrombin Time INROrdered By: Honey Kiser on 01-03-2023 PT Coag (PPP) [Time] 11.5 s Normal 9.0-12.9 [facility] Comment on above: Performed By: #### C BC, BMP, PTT, PT #### [address] Serum or plasma anion gap de terminationOrdered By: Honey Kiser on 01-03-2023 Anion gap [Moles/Vol] 9.9 mmol/L Normal 6.0-15.0 [facility] Comment on above: Performed By: #### C BC, BMP, PTT, PT #### [facility] [address] [place] [address] Sodium [Moles/volume] in Ser um or PlasmaOrdered By: Honey Kiser on 01-03-2023 Sodium [Moles/Vol] 139 mmol/L Normal 136-145 [facility] Comment on above: Performed By: #### C BC, BMP, PTT, PT #### [address] [place] [address] [facility] Urea nitrogen [Mass/volume] in Serum or PlasmaOrdered By: Honey Kiser on 01-03-2023 Urea nitrogen [Mass/Vol] 10 mg/dL Normal 7-25 [facility] Comment on above: Performed By: #### C BC, BMP, PTT, PT #### [facility] [address] [place] [address] [facility] Vital Signs Date Time Vital Sign Value Performing Clinician Faci lity 03-18-2023 10:58-0400 Diastolic blood pressure 90 mm[Hg] [facility] Work Phone: [facility] 03-18-2023 10:58-0400 Heart rate 64 /min [facility] Work Phone: [facility] 03-18-2023 10:58-0400 Respiratory rate 5 /min [facility] Work Phone: [facility] 03-18-2023 10:58-0400 SaO2% (BldA) [Mass fraction] 97 % [facility] Work Phone: [facility] 03-18-2023 10:58-0400 Systolic blood pressure 140 mm[Hg] [facility] Work Phone: [facility] 03-18-2023 10:02-0400 Body temperature 97.5 [degF] [facility] Work Phone: [facility] 03-18-2023 09:59-0400 Body height 175.26 cm [facility] Work Phone: [facility] 03-18-2023 09:59-0400 Body weight 113.6 kg [facility] Work Phone: [facility] 01-03-2023 17:21-0400 Body height 160.02 cm [facility] Work Phone: [facility] 01-03-2023 17:21-0400 Body temperature 97.7 [degF] [facility] Work Phone: [facility] 01-03-2023 17:21-0400 Body weight 107.5 kg [facility] Work Phone: [facility] 01-03-2023 17:21-0400 Diastolic blood pressure 78 mm[Hg] [facility] Work Phone: [facility] 01-03-2023 17:21-0400 Heart rate 69 /min [facility] Work Phone: [facility] 01-03-2023 17:21-0400 Respiratory rate 18 /min [facility] Work Phone: [facility] 01-03-2023 17:21-0400 SaO2% (BldA) [Mass fraction] 98 % [facility] Work Phone: [facility] 01-03-2023 17:21-0400 Systolic blood pressure 133 mm[Hg] [facility] Work Phone: [facility] Encounters Encounter Date Encounter Type Care Provider Facility Start: 03-18-2023 End: 03-18-2023 Emergency department patient visit Antwan Tran Facility:[facility] Start: 03-18-2023 End: 03-18-2023 Emergency department patient visit [facility] Work Phone: [facility] Work Phone: Start: 01-03-2023 End: 01-03-2023 Emergency department patient visit [facility] Facility:[facility] Start: 01-03-2023 End: 01-03-2023 Emergency department patient visit [facility] Work Phone: [facility] Work Phone: Procedures Date Procedure Procedure Detail Performing Clinician Start: 01-03-2023 Duplex scan of lower limb veins [facility] Work Phone: Plan of Treatment Date Care Activity Detail Author Start: 01-03-2023 Duplex scan of lower limb veins US venous duplex LE LT [facility] Start: 01-03-2023 US Lower extremity v ein - left [facility] Patient Education [facility] Work Phone: Patient referral [facility] Work Phone: Immunizations Immunization Date Immunization Notes Care Provider Fa cility 01-01-2021 COVID-19 mRNA-1273 (Moderna) [facility] Work Phone: [facility] 12-04-2020 COVID-19 mRNA-1273 (Moderna) [facility] Work Phone: [facility] Payers Date Payer Category Payer Medicaid [id number] 2023 Self-pay [id number] Unknown [id number] Unknown [id number] Unknown [id number] Social History Date Type Detail Facility Start: 01-03-2023 End: 03-18-2023 Tobacco smoking status TNIS Smoker (finding) [facility] Start: 1970 Sex Assigned At Female F [facility] Evaluation note Note Date & Type Note Facility Evaluation note No assessment information availa ble [facility] Work Phone: Hospital Discharge instructions Note Date & Type Note Facility Hospital Discharge instructions Additional Instructions Tylenol or Naprosyn if needed for pain Apply ice to affected area Follow-up with your doctor on Thursday Return here if any problems persist or worsen as instructed [facility] Work Phone: Chief Complaint and Reason for Visit Chief Complaint LEG PAIN Chief Complaint LEG PAIN Headache Advance Directives No Advanced Directives Records Found Advance Directive Response Recorded Date/ Time Advance Directives No March 22, 2019 8:56am Summary Purpose Family History No Family History Records Found Additional Source Comments Care Teams (unrecognized sec tion and content) Team Status: Active Member Role Status Dates [facility] Primary Care Provider Active Team Status: Inactive Member Role Status Dates [facility] Primary Care Provider Active Honey Kiser APRN Emergency Provider Active Team Status: Inactive Member Role Status Dates Antwan Tran MD Emergency Provider Active [facility] Primary Care Provider Active Goals (unrecognized section and content) Goals may be documented in a n alternate sectionGoals may be documented in an alternate section INFORMATION SOURCE (unrecogn ized section and content) DATE CREATED AUTHOR 03/28/2023 [facility] FOR RECORDS PERTAINING TO PATIENTS WHO ARE OR HAVE BEEN ENROLLED IN A CHEMICAL DEPENDENCY/SUBSTANCEABUSE PROGRAM, SOME INFORMATION MAY BE OMITTED. This clinical summary was aggregated from multiple sources. Caution should be exercised in using it in the provision of clinical care. This summary normalizes information from multiple sources, and as a consequence, information in this document may materially change the coding, format and clinical context of patient data. In addition, data may be omitted in some cases. CLINICAL DECISIONS SHOULD BE BASED ON THE PRIMARY CLINICAL RECORDS. [employer] provides no warranty or guarantee of the accuracy or completeness of information in this document.
== END 2023-07-23 09:31 | disposition home or self-care (01) ==
LOC: RAD 09:31
PROVIDERS: PCP Family Medicine
DX: M25.511 Pain in right shoulder (principal)
CPT/HCPCS: 73030